=== PATIENT | male | born 1960 | race Hispanic/Latino ===

== ENCOUNTER 2021-08-10 10:11 | Emergency (ER) | payer OTHER ==
[~2021-08-10] VITALS: Ht 182.9 cm; Wt 118.8 kg
[2021-08-10 12:54] VITALS: BP 134/78
== END 2021-08-10 12:55 | disposition home or self-care (01) ==
LOC: EDH 10:11
DX: S53.401A Unspecified sprain of right elbow, initial encounter (principal); S39.012A Strain of muscle, fascia and tendon of lower back, initial encounter; S60.811A Abrasion of right wrist, initial encounter; V49.49XA Driver injured in collision with other motor vehicles in traffic accident, initial encounter; Y93.89 Activity, other specified; Y92.413 State road as the place of occurrence of the external cause; Y99.8 Other external cause status
CPT/HCPCS: 72100; 73080; 73110